=== PATIENT | female | born 1975 | race Caucasian/White ===

== ENCOUNTER 2016-05-16 17:04 | Inpatient (IN) | payer BC ==
[2016-05-16] VITALS (8 sets, daily range): BP systolic 98–110; BP diastolic 69–75; PULSE 77–78; RESP 18–20
[~2016-05-16] VITALS: Ht 152.4 cm; Wt 59.9 kg
--- NOTE | 2016-05-16 18:05 | HHI.HP ---
HPI Chief Complaint Water broke Date Seen: May 16, 2016 Travel History International Travel<30 Days: No Contact w/Intl Traveler<30Days: No Known Affected Area: No History of Present Illness HPI This patient is a 40-year-old at 40 weeks gestation presents with spontaneous rupture the membranes, no bleeding, panfilo irregularly and she' s not having any pain or feeling them. NST is reactive and the contractions are seen every 4 minutes. Amnio sure was positive Para: 0 : 1 History Past Medical History Narrative Medical She had a positive PPD in the past Medical History: Denies Significant Hx Social History Alcohol Use: No Tobacco Use: No Substance Abuse: No Review of Systems General / Constitutional: No: Fever, Weight Gain, Chills, Other Eyes: No: Diploplia, Blurred Vision, Visual changes, Pain, Photophobia HENT: No: Headaches, Vertigo, Lightheadedness Cardiovascular: No: Irregular Rhythm, Chest Pain or Discomfort, Palpitations, Tachycardia, Syncope, Varicosities, Edema, Cyanosis Respiratory: No: Cough, Short of Breath, Other Gastrointestinal: No: Nausea, Vomiting, Diarrhea Genitourinary: No: Decreased Urinary Output, Oliguria Musculoskeletal: No: Limited ROM, Weakness, Cramping, Edema, Pain Skin: No Rash, No Itching, No Dryness, No Lumps, No Change in Pigmentation, No Change in Nails, No Alopecia, No Lesions Neurologic: No: Weakness, Dizziness, Syncope, Focal Abnormalities, Coordination Problem, Headache, Slurred Speech, Seizures Psychiatric: No: Depression, Suicidal Ideations, Homicidal Ideation Endocrine: No: Heat Intolerance, Cold Intolerance, Polydipsia, Polyuria, Other Physical Exam Narrative GENERAL: Well-nourished, well-developed patient. SKIN: Warm and dry. HEAD: Normocephalic and atraumatic. EYES: No scleral icterus. No injection or drainage. ENT: No nasal drainage noted. Mucous membranes pink. Airway patent. NECK: Supple, trachea midline. No JVD. CARDIOVASCULAR: Regular rate and rhythm without murmurs, gallops, or rubs. RESPIRATORY: Breath sounds equal bilaterally. No accessory muscle use. BREASTS: Bilateral exam showed no masses , no retractions, no nipple discharge. ABDOMEN/GI: Abdomen soft, non-tender, bowel sounds present, no rebound, no guarding Gravid to [-38] weeks size Fundal Height: [-36] GENITOURINARY: External Genitalia: intact and normal in appearance BUS glands: [-] Cervix: [-] Dilatation: [-1] Effacement: [50-] Station: [-3] Presentation: [vtx-] Membranes: [ ruptured] Uterine Contractions: q 4 min[-] FHT's: Category: [-1] Baseline: [-133] Reactive: [yes-] Variability: [mod-] Decels: [none-] EXTREMITIES: No cyanosis or edema. BACK: Nontender without obvious deformity. No CVA tenderness. NEUROLOGICAL: Awake and alert. Motor and sensory grossly within normal limits. Five out of 5 muscle strength in all muscle groups. Normal speech. Data Data Orders Ob (2e) Additional Admit Info (05/16/16 17:57) Labs GBS positive, amnio sure is positive Assessment/Plan Assessment and Plan Patient is a 40-year-old at 40 weeks with spontaneous ruptured membranes early contractions but no pain cervix is 1 cm 50% -3 vertex presentation plan is admission to hospital and to augment labor as needed. Darion Gaxiola II, MD May 16, 2016 18:05
[2016-05-16] MEDS ORDERED: LACTATED RINGER'S 1000 ML INJ 1,000 ML IV PRN (18:07)
[2016-05-16] MEDS ORDERED: OXYTOCIN 30 UNITS-500ML PREMIX 500 ML IV SCH (18:15)
[2016-05-16] MEDS ORDERED: LIDOCAINE HCL 1% 50 ML VIAL I-DERMAL PRN (18:15)
[2016-05-16] MEDS ORDERED: LIDOCAINE HCL 1% 50 ML VIAL INFIL PRN (18:15)
[2016-05-16] MEDS ORDERED: SODIUM CHLORID 0.9% 500 ML INJ 500 ML IV PRN (18:15)
[2016-05-16] MEDS ORDERED: CITRIC ACID-SODIUM CITRATE LIQ 30 ML UDC PO SCH (18:15)
[2016-05-16] MEDS ORDERED: OXYTOCIN 30 UNITS-500ML PREMIX 500 ML IV ONE (18:15)
[2016-05-16] MEDS ORDERED: PENICILLIN G POTASSIUM INJ 5,000,000 UNITS in SODIUM CHLORIDE 0.9% INJ 100 ML IV ONE (18:15)
[2016-05-16] MEDS ORDERED: MINERAL OIL 10 ML VIAL TOPICAL PRN (18:15)
[2016-05-16] MEDS ORDERED: SODIUM CHLOR 0.9% 1000 ML INJ 1,000 ML IV PRN (18:27)
[2016-05-16] MEDS: LACTATED RINGER'S 1000 ML INJ 1,000 ML IV SCH (18:39)
[2016-05-16] MEDS ORDERED: PREN29TA PO (18:41)
[2016-05-16 20:49] LABS: AUTOMATED NEUTROPHIL # 5.6 TH/MM3 (1.8-7.7); BASOPHIL % 0.3 % (0.0-2.0); EOSINOPHIL % 0.5 % (0.0-4.0); HEMATOCRIT 37.3 % (35.0-46.0); HEMO FLAGS DIFF FINAL; LYMPH % 29.1 % (9.0-44.0); LYMPHOCYTE # 2.6 TH/MM3 (1.0-4.8); MEAN CORPUSCULAR HEMOGLOBIN 32.4 PG (27.0-34.0); MEAN CORPUSCULAR HGB CONC 35.6 % (32.0-36.0); MONO % 8.6 % (0.0-8.0); NEUT % 61.5 % (16.0-70.0); PLATELET COUNT 265 TH/MM3 (150-450); RED CELL DISTRIBUTION WIDTH 13.2 % (11.6-17.2); WHITE BLOOD COUNT 9.1 TH/MM3 (4.0-11.0)
--- NOTE | 2016-05-16 21:03 | PD.LABORPN ---
Subjective Subjective 40 yo G1 with SROM since 7a who worked with her director of medical review at home until 6 pm. Came to [facility]. She is GBS + Strip category one Irergular UCs. Initiallyl preferred to avoid pitocin but has been counseled on risk of chorioamniitis with prolonged rupture of membranes. Encouraged to walk, eat, use birthing ball and will likely begin pitocin in next hour Objective Vital Signs Vital Signs Date Time Temp Pulse Resp B/P Pulse Ox O2 Delivery O2 Flow Rate FiO2 05/16/16 20:45 20 05/16/16 19:30 18 Objective term fundus EFQW 7 1/2 pelvis clinically adequate 1+/75%/-1 posterior fluid red tinged no odor yet Assessment/Plan Assessment and Plan will likely begin pitocin soon epidural prn discussed birthing plan anticipate Ivonne Llanos MD May 16, 2016 21:03
[2016-05-16 21:06] LABS: BLOOD, URINE NEG (NEG); COMMENT (UR) CULT NOT INDICATED; CULTURE IF INDICATED CULT NOT INDICATED; GLUCOSE,URINE NEG (NEG); KETONE, URINE NEG (NEG); MUCUS URINE FEW /lpf (OCC); NITRITE,URINE NEG (NEG); PH, URINE 7.5 (5.0-8.5); SQUAMOUS EPITHELIAL CELL URINE 2 /hpf (0-5); URINE COLOR LIGHT-YELLOW (YELLW/STRAW)
[2016-05-17] VITALS (51 sets, daily range): BP systolic 94–142; BP diastolic 55–112; PULSE 64–132; RESP 18–20; TEMP 98–99.8; O2SAT 95–100
[2016-05-17] MEDS ORDERED: fentaNYL 2MCG-BUPIV 0.125% INJ 100 ML ONE
[2016-05-17] MEDS: PENICILLIN G POTASSIUM INJ 2,500,000 UNITS in SODIUM CHLORIDE 0.9% INJ 100 ML IV SCH ×3 (00:29→06:47)
[2016-05-17] MEDS: LACTATED RINGER'S 1000 ML INJ 1,000 ML IV SCH (03:33)
--- NOTE | 2016-05-17 07:37 | PD.OB.DELI ---
Anesthesia: Epidural Episiotomy: None Vaginal Delivery: Normal Presentation: Occiput anterior Nuchal Cord: None Delayed cord clamping (45 sec): Yes Infant: Male One Minute : 9 Five Minute : 9 Weight: 7 Infant Care: Suctioned, Spontaneous crying Laceration: 2 deg Repair: Chromic interrupted (swollen perineum--watch for retention) Ivonne Wilkes MD May 17, 2016 07:37
[2016-05-17] MEDS ORDERED: ZOLPIDEM TARTRATE 5 MG TAB PO PRN (07:45)
[2016-05-17] MEDS ORDERED: WITCH HAZEL 50%/GLYCERIN 12.5% 40 PAD JAR TOPICAL PRN (07:45)
[2016-05-17] MEDS ORDERED: ONDANSETRON ODT 4 MG TAB PO PRN (07:45)
[2016-05-17] MEDS ORDERED: ACETAMINOPHEN 325 MG TAB PO PRN (07:45)
[2016-05-17] MEDS ORDERED: BENZOCAINE 20% TOPICAL SPRAY 60 ML CAN TOPICAL PRN (07:45)
[2016-05-17] MEDS ORDERED: ALUMINUM/MAGNESIUM/SIMETH 30 ML CUP PO PRN (07:45)
[2016-05-17] MEDS ORDERED: SODIUM CHLORIDE 0.9% FLUSH 5 ML FLUSH IV PRN (07:45)
[2016-05-17] MEDS ORDERED: SODIUM CHLORIDE 0.9% FLUSH 5 ML FLUSH IV SCH (09:00)
[2016-05-17] MEDS ORDERED: IBUP-232 PO (13:14)
--- NOTE | 2016-05-17 13:14 | HHI.DCPOC ---
Discharge Care Plan Diagnosis: (1) (spontaneous vaginal delivery) Report Symptoms to Your Doctor -Temperate above 100.5 degrees -Redness, of incision or excessive or foul smelling drainage -Unusual pain or calf pain -Increased vaginal bleeding -Painful or difficulty urinating -Feelings of extreme sadness or anxiety after 2 weeks Goals to Promote Your Health * To prevent worsening of your condition and complications * To maintain your health at the optimal level Directions to Meet Your Goals Take your medications as prescribed Follow your dietary instruction Follow activity as directed Ensure plenty of rest for recovery Drink fluids for hydration Keep your appointments as scheduled Take your immunizations and boosters as scheduled If your symptoms worsen call your PCP, if no PCP go to Urgent Care Center or Emergency Room Smoking is Dangerous to Your Health. Avoid second hand smoke Call the 24-hour crisis hotline for domestic abuse at Candis Melendez MD May 17, 2016 13:14
[2016-05-17] MEDS: IBUPROFEN 600 MG TAB PO PRN ×2 (13:44→19:55)
[2016-05-17] MEDS ORDERED: MEASLES, MUMPS, RUBELLA VACCINE 0.5 ML VIAL SQ ONE (16:00)
[2016-05-17] MEDS ORDERED: DIPHTH/TETANUS/ACEL PERTUSSIS (BOOSTER) 0.5 ML VIAL/PFS IM ONE (16:00)
[2016-05-18] MEDS: IBUPROFEN 600 MG TAB PO PRN ×3 (02:42→21:09)
--- NOTE | 2016-05-18 08:02 | HHI.OB ---
Subjective Post Day: 1 Remarks doing well would like discharge after seeing workforce management consultant no pain Objective Vitals/I&O Vital Signs Date Time Temp Pulse Resp B/P Pulse Ox O2 Delivery O2 Flow Rate FiO2 05/17/16 20:00 98.1 05/17/16 20:00 82 20 112/70 05/17/16 10:34 110/68 05/17/16 10:34 98.1 80 20 05/17/16 10:34 110/68 05/17/16 08:01 105 126/80 Objective Remarks GENERAL: Well-nourished, well-developed patient. CARDIOVASCULAR: Regular rate and rhythm without murmurs, gallops, or rubs. RESPIRATORY: Breath sounds equal bilaterally. No accessory muscle use. ABDOMEN/GI: Abdomen soft, non-tender. Fundus: Firm, non-tender at umbilicus. GENITOURINARY: Light to moderate bleeding. EXTREMITIES: No cyanosis or edema, non-tender, without signs of DVT. Medications and IVs Current Medications Medications (Trade) Dose Ordered Sig/Nakul Route Start Time Stop Time Status Last Admin Lactated Ringer's 1,000 ml @ 125 mls/hr Q8H IV 05/16/16 18:07 05/17/16 03:33 Lactated Ringer's 1,000 ml @ 3,000 mls/hr Q20M PRN IV 05/16/16 18:07 05/17/16 00:29 Sodium Chloride 500 ml @ 1,000 mls/hr ONCE PRN IV 05/16/16 18:15 05/18/16 18:14 (NS 1000 ml Inj) 1,000 ml @ 100 mls/hr Q10H PRN IV 05/16/16 18:27 (fentaNYL INJ) 50 mcg Q1H PRN IV PUSH 05/16/16 18:15 Fentanyl Citrate 100 mcg 100 mcg Q1H PRN IV PUSH 05/16/16 18:15 (Pfizerpen-G Inj/ NS Inj) 100 ml @ 200 mls/hr Q4H IV 05/16/16 22:15 05/17/16 06:47 Mineral Oil 10 ml 10 ml UNSCH PRN TOPICAL 05/16/16 18:15 (Pitocin 30 Units-NS 500 ml Premix) 500 ml @ 0 mls/hr TITRATE IV 05/16/16 18:15 05/16/16 21:47 (NS Flush) 2 ml BID IV 05/17/16 09:00 (NS Flush) 2 ml UNSCH PRN IV 05/17/16 07:45 (Tylenol) 650 mg Q4H PRN PO 05/17/16 07:45 (Motrin) 600 mg Q6H PRN PO 05/17/16 07:45 05/18/16 02:42 (Americaine 20% Top Spr) 1 spray Q4H PRN TOPICAL 05/17/16 07:45 (Tucks Pads) 1 applic QID PRN TOPICAL 05/17/16 07:45 (Clarita-Colace) 2 tab Q12H PRN PO 05/17/16 07:45 (Ambien) 5 mg HS PRN PO 05/17/16 07:45 (Mag-Al Plus Susp Liq) 15 ml Q8H PRN PO 05/17/16 07:45 (Zofran Odt) 4 mg Q6H PRN PO 05/17/16 07:45 Assessment/Plan Assessment and Plan PPD 1 consultalnt and then discharge if infant discharge uncertain about circumcision Ivonne Wilkes MD May 18, 2016 08:02
[2016-05-18 08:12] VITALS: BP 115/68; PULSE 80; RESP 18; TEMP 98.3
[2016-05-18] MEDS: DOCUSATE SODIUM 50 MG/SENNA 8.6 MG TAB PO PRN (16:57)
[2016-05-18 21:00] VITALS: BP 120/70; PULSE 85; RESP 18; TEMP 98.2
[2016-05-19] MEDS: IBUPROFEN 600 MG TAB PO PRN ×2 (04:03→09:57)
[2016-05-19 08:00] VITALS: BP 113/77; PULSE 82; RESP 14; TEMP 98.4
--- NOTE | 2016-05-19 08:07 | HHI.OB ---
Subjective Post Day: 2 Remarks Doing well with no issues nursing well very happy Objective Vitals/I&O Vital Signs Date Time Temp Pulse Resp B/P Pulse Ox O2 Delivery O2 Flow Rate FiO2 05/18/16 21:00 98.2 85 18 120/70 05/18/16 08:12 98.3 80 18 115/68 Objective Remarks GENERAL: Well-nourished, well-developed patient. CARDIOVASCULAR: Regular rate and rhythm without murmurs, gallops, or rubs. RESPIRATORY: Breath sounds equal bilaterally. No accessory muscle use. ABDOMEN/GI: Abdomen soft, non-tender. Fundus: Firm, non-tender at umbilicus. GENITOURINARY: Light to moderate bleeding. EXTREMITIES: No cyanosis or edema, non-tender, without signs of DVT. Medications and IVs Current Medications Medications (Trade) Dose Ordered Sig/Nakul Route Start Time Stop Time Status Last Admin Lactated Ringer's 1,000 ml @ 125 mls/hr Q8H IV 05/16/16 18:07 05/17/16 03:33 Lactated Ringer's 1,000 ml @ 3,000 mls/hr Q20M PRN IV 05/16/16 18:07 05/17/16 00:29 (NS 1000 ml Inj) 1,000 ml @ 100 mls/hr Q10H PRN IV 05/16/16 18:27 (fentaNYL INJ) 50 mcg Q1H PRN IV PUSH 05/16/16 18:15 Fentanyl Citrate 100 mcg 100 mcg Q1H PRN IV PUSH 05/16/16 18:15 (Pfizerpen-G Inj/ NS Inj) 100 ml @ 200 mls/hr Q4H IV 05/16/16 22:15 05/17/16 06:47 Mineral Oil 10 ml 10 ml UNSCH PRN TOPICAL 05/16/16 18:15 (Pitocin 30 Units-NS 500 ml Premix) 500 ml @ 0 mls/hr TITRATE IV 05/16/16 18:15 05/16/16 21:47 (NS Flush) 2 ml BID IV 05/17/16 09:00 (NS Flush) 2 ml UNSCH PRN IV 05/17/16 07:45 (Tylenol) 650 mg Q4H PRN PO 05/17/16 07:45 (Motrin) 600 mg Q6H PRN PO 05/17/16 07:45 05/19/16 04:03 (Americaine 20% Top Spr) 1 spray Q4H PRN TOPICAL 05/17/16 07:45 05/18/16 21:27 (Tucks Pads) 1 applic QID PRN TOPICAL 05/17/16 07:45 05/18/16 21:27 (Clarita-Colace) 2 tab Q12H PRN PO 05/17/16 07:45 05/18/16 16:57 (Ambien) 5 mg HS PRN PO 05/17/16 07:45 (Mag-Al Plus Susp Liq) 15 ml Q8H PRN PO 05/17/16 07:45 (Zofran Odt) 4 mg Q6H PRN PO 05/17/16 07:45 Assessment/Plan Assessment and Plan PP2 ready for discharge counseled Ivonne Wilkes MD May 19, 2016 08:07
--- NOTE | 2016-05-19 08:08 | HHI.DCPOC ---
Discharge Care Plan Report Symptoms to Your Doctor -Temperate above 100.5 degrees -Redness, of incision or excessive or foul smelling drainage -Unusual pain or calf pain -Increased vaginal bleeding -Painful or difficulty urinating -Feelings of extreme sadness or anxiety after 2 weeks Goals to Promote Your Health * To prevent worsening of your condition and complications * To maintain your health at the optimal level Directions to Meet Your Goals Take your medications as prescribed Follow your dietary instruction Follow activity as directed Ensure plenty of rest for recovery Drink fluids for hydration Keep your appointments as scheduled Take your immunizations and boosters as scheduled If your symptoms worsen call your PCP, if no PCP go to Urgent Care Center or Emergency Room Smoking is Dangerous to Your Health. Avoid second hand smoke Call the 24-hour crisis hotline for domestic abuse at Ivonne Wilkes MD May 19, 2016 08:08
[2016-05-19] MEDS: DOCUSATE SODIUM 50 MG/SENNA 8.6 MG TAB PO PRN (09:57)
== END 2016-05-19 11:06 | disposition home or self-care (01) | DRG 775 ==
LOC: HOBED 17:04 → H2EB 18:02 → H1EA 05-17 10:22
PROVIDERS: ADMIT Obstetrics & Gynecology; ATTEND Obstetrics & Gynecology
PROC: 10E0XZZ Delivery of Products of Conception, External Approach (ICD-10-PCS; principal; 2016-05-17)
PROC: 0KQM0ZZ Repair Perineum Muscle, Open Approach (ICD-10-PCS; 2016-05-17)
DX: O99.824 Streptococcus B carrier state complicating childbirth (principal); Z37.0 Single live birth; O70.1 Second degree perineal laceration during delivery; Z3A.40 40 weeks gestation of pregnancy
CPT/HCPCS: 81001; 84112; 85025; 86850; 86900; 86901; 99285; J2540; J2590; J7120